=== PATIENT | female | born 1975 | race American Indian/Alaskan Native ===

== ENCOUNTER → 2024-06-06 14:29 | Outpatient (CLI) | payer OTHER, SELFPAY ==
--- NOTE | 2024-06-06 14:38 | DI.RAD.S_ITS ---
PROCEDURE: XR CERVICAL SPINE 2V OR 3V INDICATIONS: Pain in thoracic spine TECHNIQUE: Two views) of the cervical spine were acquired. COMPARISON: None. FINDINGS: Cervical spine curvature and alignment: Normal. Bones: There are no osseous abnormalities. Disc spaces: Minimal C5-6 degenerative disc disease noted. Intervertebral foramen: Grossly normal in width. Soft tissues: No soft tissue swelling, calcification or mass. IMPRESSION: Minimal C5-6 degenerative disc disease. Dictated by: Walker Egan M.D. on 06/07/2024 at 11:54 Approved by: Walker Egan M.D. on 06/07/2024 at 11:55
--- NOTE | 2024-06-06 14:38 | DI.RAD.S_ITS ---
PROCEDURE: XR THORACIC SPINE 2V INDICATIONS: Pain in thoracic spine TECHNIQUE: 3 views of the thoracic spine were acquired. COMPARISON: None. FINDINGS: Thoracic spine curvature and alignment: Very slight rightward curve of the lower thoracic upper lumbar spine appreciated Bones: There are no osseous abnormalities. Disc spaces: Normal in height without significant degeneration. Intervertebral foramen: Grossly normal in width. Soft tissues: No soft tissue swelling, calcification or mass. IMPRESSION: Very slight were idiopathic rightward curve lower thoracic and upper lumbar spine. Dictated by: Walker Egan M.D. on 06/07/2024 at 12:08 Approved by: Walker Egan M.D. on 06/07/2024 at 12:09
== END ==
PROVIDERS: PCP Nurse Practitioner Family; Referring Provider Nurse Practitioner Family; Visit Provider Nurse Practitioner Family
DX: M54.6 Pain in thoracic spine (principal)
CPT/HCPCS: 72040; 72070